=== PATIENT | female | born 1950 | race African-American/Black ===

== ENCOUNTER → 2018-09-25 | Outpatient (CLI) | payer MEDICARE, MEDICAID ==
[~2018-09-25] MED LIST: AMMO12CR7 TOP; CINA30TA4 PO; COSO1SOL2 OU; CRES5TAB PO; FERR325T3 PO; KEPP1TAB PO; LEVO50TA5 PO; METH50TA2 PO; METO1TAB32 PO; PEG1POW PO; SENN8.6T28 PO; TRAV04OPD OU
--- NOTE | 2018-09-25 13:59 | REP ---
Clinical: Nephrolithiasis. Technique: Two supine views of the abdomen and pelvis. Findings: Evaluation is severely limited by overlying bowel gas. Bilateral renal calculi measuring up to approximately 7 mm are suggested. Calcifications within the pelvis are nonspecific and may represent bladder/distal ureteral calculi versus phleboliths. Skeletal structures demonstrate age-related changes. Impression: Findings suggest bilateral nonobstructing renal calculi up to 7 mm along with phleboliths and/or urinary tract calculi in the pelvis. Electronically Signed by Alex Steven MD 09/25/2018 01:51 P
== END ==
LOC: M SMT 11:40
PROVIDERS: ATTEND Urology
DX: N20.0 Calculus of kidney (principal)
CPT/HCPCS: 74018; G0463

== ENCOUNTER 2018-10-28 08:14 | Day surgery (SDC) | payer MEDICARE, MEDICAID ==
[~2018-10-28] VITALS: Ht 165.1 cm; Wt 89.4 kg
[~2018-10-28 08:14] MED LIST changes: +CONRAY-60 60% 50ML VIAL (Q9961) As Ordered ONE; +LIDOCAINE 1% MDV 20ML VIAL SQ PRN; +LIDOCAINE 2% INJ 100 MG/5 ML SDV (FOR ANES.) As Ordered ONE; +LR 1,000 ML IV ONE; +MIDAZOLAM INJ 2 MG/2 ML VIAL (J2250) As Ordered ONE; +PROPOFOL 200 MG/20 ML VIAL As Ordered ONE; +dexameTHASONE 4 MG/ML 1ML VIAL (J1100) As Ordered ONE; +fentaNYL 100 MCG/2 ML INJECTION (J3010) As Ordered ONE
[2018-10-28] MEDS ORDERED: GLYCOPYRROLATE INJ 0.2 MG/ML 2 ML VIAL As Ordered ONE ×2 (11:46→13:26)
[2018-10-28] MEDS ORDERED: ROCURONIUM BROMIDE 50 MG/5 ML VIAL As Ordered ONE (11:50)
[2018-10-28] MEDS ORDERED: ONDANSETRON 4MG/2ML VIAL (J2405) As Ordered ONE (12:58)
[2018-10-28] MEDS ORDERED: ACETAMINOPHEN 1000MG 100ML IV BTL (OFIRMEV) (J0131 PER 10MG) As Ordered ONE (13:02)
[2018-10-28] MEDS ORDERED: PHENYLEPHRINE INJ 10MG/ML VIAL (J2370) As Ordered ONE (13:26)
[2018-10-28] MEDS ORDERED: ePHEDrine SULFATE 25 MG/5 ML(5MG/ML) SYRINGE As Ordered ONE (13:27)
[2018-10-28] MEDS ORDERED: SUCCINYLCHOLINE 100 MG/5 ML SYRINGE (J0330) As Ordered ONE (13:27)
[2018-10-28] MEDS ORDERED: NEOSTIGMINE 10 MG/10 ML VIAL (J2710) As Ordered ONE (13:29)
[2018-10-28] MEDS ORDERED: ACETAMINOPHEN TAB 650MG DOSE (2X325MG) PO PRN (14:15)
[2018-10-28] MEDS ORDERED: METOCLOPRAMIDE INJ 10MG/2ML VIAL (J2765) IV PRN (14:30)
[2018-10-28] MEDS ORDERED: PERCOCET 5MG/325MG TAB PO PRN (14:30)
[2018-10-28] MEDS ORDERED: fentaNYL 100 MCG/2 ML INJECTION (J3010) IV PRN (14:30)
[2018-10-28] MEDS ORDERED: LR 1,000 ML IV SCH (14:30)
[2018-10-28] MEDS ORDERED: ONDANSETRON 4MG/2ML VIAL (J2405) IV PRN (14:30)
[2018-10-28 15:10] VITALS: BP 139/86
--- NOTE | 2018-10-28 15:54 | REP ---
Retrograde pyelogram: Three views. History: Nephrolithiasis. 55 seconds of fluoroscopy time was reported. Findings: A sequence of three last image hold fluoroscopically obtained spot radiographs of the abdomen document bilateral ureteral stent placement. Electronically Signed by Dexter Walker MD 10/28/2018 04:10 P
--- NOTE | 2018-10-29 08:37 | RO ---
DATE OF PROCEDURE: 10/28/2018 PREPROCEDURE DIAGNOSIS: Bilateral kidney stones. POSTPROCEDURE DIAGNOSIS: Bilateral kidney stones, and left ureteral stone. PROCEDURE: Cystoscopy, bilateral ureteroscopy with left-sided laser lithotripsy, basket extraction of stones, bilateral retrograde pyelogram with intraoperative interpretation of images, bilateral ureteral stent placement. SURGEON: Dr. Danilo Crum. MACHINE OPERATORS: None. ANESTHESIA: General. OPERATIVE INDICATIONS: This is a 68-year-old female who has had recurrent urinary tract infections and also found to have kidney stones. She was brought to the operating room today to treat her stones. DESCRIPTION OF PROCEDURE: Patient brought to the operating room and general anesthesia was induced. Prophylactic antibiotics were infused. She was then placed in the dorsal lithotomy position and prepped and draped in the usual sterile fashion. A rigid cystoscope was inserted through the urethral meatus and advanced to the bladder. Of note, upon entering the bladder, there are no stones seen in the bladder, but the left ureteral orifice did appear to be very prominent, almost like there was a mound with stone in side of it. At this point, a guidewire was advanced up the left collecting system. I then went up the left ureter with a short semi-rigid ureteroscope and just within the left ureteral orifice, an approximately 1 cm stone was seen. This stone was then fragmented into smaller pieces using 272 micron laser fiber and all the fragments were removed using basket. I then went up the more proximal ureter and no additional stones are seen within the ureter. I then advanced the a ureteral access sheath up the left collecting system and went up the access sheath with a flexible ureteroscope. Of note, the patient had very narrow infundibula but I was able to get into each keinsha. At this point, the patient had, what appeared to be stenotic infundibulum and I was able to open that with the basket and within that an approximately 6-7 mm size stone was seen. The stone was fragmented into smaller pieces using a laser and then all the fragments were removed. Once done, the only stones remaining inside the kidney were tiny enough to pass. I then shot a retrograde pyelogram and it was negative for extravasation or hydronephrosis. I then removed the access sheath along with the ureteroscope and no stones were seen within the ureter. I then utilized the wire to advance a 7-[place] x 22-32 cm JJ ureteral stent up the left collecting system. The wire was then removed and there were adequate curls of the stent in the left renal pelvis and in the bladder. I then advanced the guidewire up the right collecting system. I then went up the right collecting system with a short semi-rigid ureteroscope and no stones were seen within the ureter. I then advanced a ureteral access sheath up the right collecting system. Then I went up the access sheath with the flexible ureteroscope. Of note, the infundibula on the right side appeared to be a lot more narrow than the left. Of note, I could not advanced the scope into any kenisha because of the narrowness of the infundibula. I therefore, could not access any of the stones that were seen on previous imaging. At this point, a retrograde pyelogram was performed and was notable for the contrast getting trapped in the calyces but I did not see any contrast in the renal pelvis. At this point, I decided to stop and just place a stent. I then removed the ureteroscope along with the access sheath. I then utilized the wire to advanced a 6-[place] x 22-32 cm JJ ureteral stent up to the right collecting system. The wire was removed and there were adequate curls of the stent up in the right kidney and in the bladder. The bladder was then emptied of all fluids. This marked the conclusion of the procedure. The patient was taken out of the dorsal lithotomy position, awakened from anesthesia and transferred to the recovery room instable condition. ESTIMATED BLOOD LOSS: 5 mL. COMPLICATIONS: None. SPECIMENS: Kidney stone fragments. PLAN: I will have the patient followup in the clinic in a week or two for stent removal. Of note, I do not think it will be possible to access the stones in the right kidney due to the narrow infundibula. I additionally do not think a shockwave lithotripsy would be very effective as the fragments still would not pass. [facility]
[2018-11-06 10:58] LABS: CA Oxalate Dihy 10 % (.); Ca Ox Monohydrate 25 % (.)
[2018-11-11] MEDS ORDERED: MACR50CA10 PO (10:24)
== END 2018-10-28 15:46 | disposition home or self-care (01) ==
LOC: M SDC 08:14
PROVIDERS: ATTEND Urology
DX: N20.0 Calculus of kidney (principal); N20.1 Calculus of ureter; I10 Essential (primary) hypertension; E78.5 Hyperlipidemia, unspecified; E03.9 Hypothyroidism, unspecified; D64.9 Anemia, unspecified; Z88.8 Allergy status to other drugs, medicaments and biological substances; F73 Profound intellectual disabilities; Z79.899 Other long term (current) drug therapy
CPT/HCPCS: 52332; 52356; 74420; 82360; 88300; C1769; C1894; C2617; J0131; J0690; J1100; J2250; J2405; J2710; J3010; Q9961

== ENCOUNTER 2018-11-13 06:11 | Day surgery (SDC) | payer MEDICARE, MEDICAID ==
[~2018-11-13] VITALS: Ht 162.6 cm; Wt 90.7 kg
[~2018-11-13 06:11] MED LIST changes: -CONRAY-60 60% 50ML VIAL (Q9961) As Ordered ONE; -LIDOCAINE 1% MDV 20ML VIAL SQ PRN; -LIDOCAINE 2% INJ 100 MG/5 ML SDV (FOR ANES.) As Ordered ONE; -LR 1,000 ML IV ONE; +MACR50CA10 PO; -MIDAZOLAM INJ 2 MG/2 ML VIAL (J2250) As Ordered ONE; -PROPOFOL 200 MG/20 ML VIAL As Ordered ONE; -dexameTHASONE 4 MG/ML 1ML VIAL (J1100) As Ordered ONE; -fentaNYL 100 MCG/2 ML INJECTION (J3010) As Ordered ONE
[2018-11-13] MEDS ORDERED: LR 1,000 ML IV ONE (06:30)
[2018-11-13] MEDS ORDERED: fentaNYL 100 MCG/2 ML INJECTION (J3010) As Ordered ONE (06:52)
[2018-11-13] MEDS ORDERED: MIDAZOLAM INJ 2 MG/2 ML VIAL (J2250) As Ordered ONE (06:52)
[2018-11-13] MEDS ORDERED: PROPOFOL 200 MG/20 ML VIAL As Ordered ONE (06:56)
[2018-11-13] MEDS ORDERED: LIDOCAINE 2% INJ 100 MG/5 ML SDV (FOR ANES.) As Ordered ONE (06:57)
[2018-11-13] MEDS ORDERED: ONDANSETRON 4MG/2ML VIAL (J2405) As Ordered ONE (06:57)
[2018-11-13] MEDS ORDERED: dexameTHASONE 4 MG/ML 1ML VIAL (J1100) As Ordered ONE (06:57)
[2018-11-13] MEDS ORDERED: ROCURONIUM BROMIDE 50 MG/5 ML VIAL As Ordered ONE (06:58)
[2018-11-13] MEDS ORDERED: LR 1,000 ML IV SCH (08:30)
[2018-11-13] MEDS ORDERED: ONDANSETRON 4MG/2ML VIAL (J2405) IV PRN (08:30)
[2018-11-13] MEDS ORDERED: fentaNYL 100 MCG/2 ML INJECTION (J3010) IV PRN (08:30)
[2018-11-13 09:00] VITALS: BP 128/62
--- NOTE | 2018-11-13 10:00 | ROOPDOC ---
[facility] Report Of Operation Report of Operation DATE OF PROCEDURE: 11/13/18 PREPROCEDURE DIAGNOSES: Bilateral renal calculi, status post ureteroscopy with laser lithotripsy, stone extraction and bilateral stent stent placement. POSTPROCEDURE DIAGNOSES: Same. PROCEDURE: Cystoscopy with bilateral retrograde stent removal. SURGEON: Liz Romero MD OPERATING ROOM TECHNICIAN: None ANESTHESIA: Gen. ESTIMATED BLOOD LOSS: Approximately minimal mL. COMPLICATIONS: None. REMARKS: . PROCEDURE NOTE: Cystoscopy, bilateral ureteroscopy with left-sided laser lithotripsy, basket extraction of stones, bilateral retrograde pyelogram with intraoperative interpretation of images, bilateral ureteral stent placement was performed on 10/28/2018. I was unable to remove stents in the clinic. DESCRIPTION OF PROCEDURE: Consents were signed prior to patient being brought to procedure room. Patient is noncommunicative and brother signed consents over the phone. Patient was brought to the cystoscopy suite. First timeout was performed. Patient was given general anesthesia with LMA. The and draped in the standard fashion place in lithotomy position. A second timeout was performed. A 21 [place] rigid cystoscope was placed through the urethra into the bladder. Bladder was inspected. No abnormalities noted. Bilateral ureteral stents were seen. Rigid grasper was used to remove the first stent. Then the second stent. Repeat cystoscopy was performed and no abnormalities were noted. Bladder was drained. Patient was properly washed off, taken out of lithotomy position, awakened from general anesthesia and taken to recovery room LIZ ROMERO MD Nov 13, 2018 10:00
== END 2018-11-13 09:15 | disposition home or self-care (01) ==
LOC: M SDC 06:11
PROVIDERS: ATTEND Urology
DX: Z46.6 Encounter for fitting and adjustment of urinary device (principal); N20.0 Calculus of kidney; E78.5 Hyperlipidemia, unspecified; E03.9 Hypothyroidism, unspecified; D64.9 Anemia, unspecified; Z79.899 Other long term (current) drug therapy; Z88.8 Allergy status to other drugs, medicaments and biological substances
CPT/HCPCS: 52310; J0690; J1100; J2250; J2405; J3010